=== PATIENT | male | born 1980 | race Caucasian/White ===

== ENCOUNTER → 2016-11-08 | Outpatient (CLI) | payer SELFPAY ==
--- NOTE | 2016-11-09 08:08 | Diagnostic Imaging Report ---
PROCEDURE: MRI lumbar spine. TECHNIQUE: Multiplanar, multisequence MRI of the lumbar spine was performed without contrast. INDICATION: Neck pain. FINDINGS: There is satisfactory alignment of the lumbar spine. The vertebral body heights are preserved. The marrow signal is within normal limits. There is suggestion of pars defects at the L5 level with no spondylolisthesis. There is disc desiccation at L5/S1 level. The cauda equina and conus medullaris appear grossly unremarkable. T12/L1: There is no disc herniation, no spinal canal or foraminal stenosis. L1/2: No disc herniation, no spinal canal or foraminal stenosis. L2/3: No disc herniation. No spinal canal or foraminal stenosis. L3/4: No disc herniation, no spinal canal or foraminal stenosis. There is mild facet hypertrophy at this level. L4/5: No disc herniation. There is mild facet and ligamentous hypertrophy and minimal facet joint fluid seen bilaterally. No central canal or lateral recess stenosis. There is mild narrowing of the foramina bilaterally. L5/S1: There is a central disc protrusion with an annular tear. There is no central canal or lateral recess stenosis. No significant facet arthropathy. There is bilateral foraminal stenosis, mild on the left and moderate on the right side. IMPRESSION: 1. 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 This can be confirmed with oblique radiographs or CT scan if needed. No spondylolisthesis. 2. [id number] foraminal stenosis is seen in the lower lumbar spine. No significant spinal canal stenosis at any level. Dictated by: Dictated on workstation # [id number]
== END ==
LOC: RAD 15:25
PROVIDERS: ATTEND Family Medicine
DX: M51.26 Other intervertebral disc displacement, lumbar region (principal)
CPT/HCPCS: 72148